=== PATIENT | female | born 1950 | race Caucasian/White ===

== ENCOUNTER 2021-06-02 18:22 | Emergency (ER) | payer MEDICARE, SELFPAY ==
[2021-06-02] VITALS (19 sets, daily range): BP systolic 129–173; BP diastolic 72–94; PULSE 53–66; RESP 13–20; TEMP 36.8; O2SAT 99–100
--- NOTE | ~2021-06-02 | CT_ITS ---
EXAMINATION: CTA brain carotid EXAM DATE: 06/02/2021 20:21 INDICATION: Dizziness. TECHNIQUE: Noncontrast head CT. Spiral CTA of the carotid arteries was performed with intravenous i njection 100 cc of Omnipaque 350. Axial, coronal, sagittal reformatted images reviewed. Additional r eformatted images created on dedicated 3-D workstation. NASCET comparable standard used to assess th e degree of arterial stenosis. Spiral CT angiogram cerebral arteries performed with the same intrave nous injection of contrast. Source images of the brain CTA transferred to dedicated workstation for 3 -D rotational image creation. Coronal, sagittal maximum intensity pixel images also reviewed. The d ose-length product (DLP) for this examination was 1609.10 mGy-cm. The exposure was tailored accordi ng to patient size, and iterative reconstruction (ASIR) was used as additional dose reduction techniq ue. Comparison is made to prior examination from 12/07/2014. FINDINGS: There is no carotid bulb arteriosclerosis or stenosis. The vertebral arteries are codominan t. There is left-sided posterior communicating artery dominant posterior cerebral artery. There is no carotid or vertebral basilar arterial dissection or fibromuscular dysplasia. There are no cerebra l artery aneurysms. There is symmetric cerebral artery arborization. The sagittal, transverse and sig moid sinuses enhance normally, no venous sinus thrombosis. Internal cerebral veins also enhance jazmyne lly. 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 There is no acute intraparenchymal hemorrhage. No evidence of intraparenchymal brain mass lesion. N o evidence of acute infarction. There is no mass effect or midline shift. There is no obstructive hyd rocephalus suspected. There are no extra-axial collections. Incidental Findings: Mildly prominent extraocular muscle bellies, can't exclude thyroid ophthalmopleg ia. Mild thyromegaly. Moderate cervical spondylosis. IMPRESSION: 1. No acute carotid or intracranial findings. 2. Bilateral carotid bulb 0% stenosis. 3. Mild thyromegaly. 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 Reviewed, dictated and finalized at location A.
--- NOTE | 2021-06-02 18:34 | ECG_ITS ---
Measurements Intervals [place] Rate: 56 P: 30 TN: 185 QRS: 4 QRSD: 106 T: 188 QT: 456 QTc: 441 Interpretive Statements SINUS BRADYCARDIA LEFT VENTRICULAR HYPERTROPHY WITH ST-T CHANGE ST-T WAVE ABNORMALITY IN ANTEROLAT/HIGH LAT LEADS- CONSIDER ISCHEMIA BASELINE ARTIFACT- I, II, III, AVR, AVL, AVF, V4 ABNORMAL ECG Electronically Signed On 06-03-2021 7:35:06 CDT by Franklin Nance D.O.
--- NOTE | 2021-06-02 18:40 | ED.GENADULT ---
HPI - General Adult General Chief complaint: Dizziness Stated complaint: Dizziness Time Seen by Provider: 06/02/21 18:29 Source: patient History of Present Illness HPI narrative: Patient is a 70 y/o female complaining of moderate dizziness starting about 5:30 PM today. She describes her dizziness as a room spinning sensation. Movement seems to aggravate her dizziness. She has no nausea or vomiting, no focal weakness or numbness. She states that she has trouble talking at times. She also has some left posterior neck pain. Related Data Allergies Allergy/AdvReac Type Severity Reaction Status Date / Time GAIL Inhibitors Allergy Severe Anaphylactic Verified 06/02/21 18:32 Shock Review of Systems Review of Systems: All systems reviewed & are unremarkable except as noted in HPI and below Constitutional: Constitutional: Denies chills, Denies fever(s), Denies headache(s) and Denies weakness Eyes: Eyes: Denies blurry vision ENT: Denies headache(s) and Denies neck pain Cardiovascular: Cardiovascular: Denies chest pain and Denies dyspnea Respiratory: Respiratory: Denies cough and Denies dyspnea Gastrointestinal: Gastrointestinal: Denies abdominal pain, Denies diarrhea, Denies nausea and Denies vomiting Genitourinary: Genitourinary: Denies hematuria and Denies dysuria Musculoskeletal: Musculoskeletal: Denies back pain and Reports neck pain Neurologic: Reports dizziness, Denies headache(s) and Denies weakness Exam Const: General: no acute distress and well developed Orientation/consciousness: oriented to person, oriented to place, oriented to time and patient oriented x3 HENMT: Head: normocephalic Ears: external ears normal General nose exam: Normal external nose present Eyes: General: appearance normal, both eyes and all related structures Conjunctivae: conjunctivae normal Neck: Neck: normal visual inspection and full ROM Chest: Chest palpation & inspection: normal inspection of the chest and no tenderness Resp: Effort & Inspection: normal respiratory effort Auscultation: clear to auscultation bilaterally Cardio: Rate: regular rate Rhythm: regular rhythm GI: GI Palp: No abdominal tenderness and Yes Soft to palpation Skin: General skin exam: normal color and turgor normal Neuro: General: oriented to person, oriented to place, oriented to time and patient oriented x3 Cranial nerves: Yes CN's II-XII intact bilaterally Cognition (Neuro): normal cognition Speech: normal speech Motor exam (neuro): 5/5 motor strength present throughout Sensory Exam: normal sensation Coordination: [id number] test normal and [id number] test normal Extrem: General: normal to inspection, full ROM and no pedal edema Psych: Appearance: grossly normal Mental Status: mental status grossly normal Affect: normal affect Course Reevaluation(s) Reevaluation #1: Rechecked. Patient feels better. She states that she is able to ambulated without difficulty. Date: 06/02/21 Time: 22:58 Vital Signs Vital signs: Vital Signs Temperature 36.8 C 06/02/21 18:34 Pulse Rate 56 L 06/02/21 18:34 Respiratory Rate 16 06/02/21 18:34 Blood Pressure 161/92 H 06/02/21 18:34 Pulse Oximetry 100 06/02/21 18:34 Temperature 36.8 C 06/02/21 18:34 Pulse Rate 56 L 06/02/21 22:15 Respiratory Rate 18 06/02/21 22:15 Blood Pressure 163/76 H 06/02/21 22:01 Pulse Oximetry 100 06/02/21 22:15 Medical Decision Making Vital Signs Vital Signs: Vital Signs Temperature 36.8 C 06/02/21 18:34 Pulse Rate 56 L 06/02/21 18:34 Respiratory Rate 16 06/02/21 18:34 Blood Pressure 161/92 H 06/02/21 18:34 Pulse Oximetry 100 06/02/21 18:34 Temperature 36.8 C 06/02/21 18:34 Pulse Rate 56 L 06/02/21 22:15 Respiratory Rate 18 06/02/21 22:15 Blood Pressure 163/76 H 06/02/21 22:01 Pulse Oximetry 100 06/02/21 22:15 Lab Data Result diagrams: 06/02/21 19:13 06/02/21 19:13 Labs: L
[2021-06-02] MEDS: MECLIZINE HCL 25 MG TABLET PO (18:50)
[2021-06-02 19:22] LABS: Basophils Percent Auto 0.4 % (0.2-1.2); Eosinophils Percent Auto 0.7 % (0-4.4); Hematocrit 34.8 % (37.0-47.0); Hemoglobin 11.2 g/dL (12.0-15.0); Immature Granulocyte Absolute 0.02 K/mm3 (0.00-0.031); Immature Granulocyte Percent A 0.4 % (0-0.5); Lymphocytes Absolute Auto 2.08 K/mm3 (0.9-3.2); Lymphocytes Percent Auto 38.8 % (18.3-44.2); Mean Corpuscular HGB Conc 32.2 g/dl (32-36); Mean Corpuscular Hemoglobin 28.6 pg (26-34); Monocytes Absolute Auto 0.5 K/mm3 (0.1-0.6); Monocytes Percent Auto 8.4 % (2.6-8.5); Neutrophils Absolute Auto 2.8 K/mm3 (1.3-6.7); Neutrophils Percent Auto 51.3 % (45.5-73.1); Platelet Count Result 272 k/mm3 (150-375); Red Blood Count 3.91 M/mm3 (4.2-5.4); Red Cell Distribution Width 14.6 % (11.5-14.5); White Blood Count 5.4 K/mm3 (4.5-10.0)
[2021-06-02 19:33] LABS: Alanine Aminotransferase 24 U/L (4-35); Albumin Level 4.3 g/dL (3.5-5.1); Alkaline Phosphatase 85 U/L (38-126); Anion Gap 9 mmol/L (8-16); Aspartate Amino Transferase 27 U/L (14-36); Bilirubin,Total 0.3 mg/dL (0.2-1.3); Blood Urea Nitrogen 14 mg/dL (7-17); Calcium 9.9 mg/dL (8.4-10.2); Carbon Dioxide 30 mmol/L (22-30); Chloride 102 mmol/L (98-107); Estimated CRCL calculation 58 ml/min; Estimated Glomerular Filt Rate > 60; Glucose 97 mg/dL (65-105); Potassium 3.4 mmol/L (3.4-5.0); Sodium 141 mmol/L (137-145)
[2021-06-02 19:40] LABS: Glucose Point of Care 104 mg/dl (65-105)
== END 2021-06-02 23:46 | disposition home or self-care (01) ==
PROVIDERS: Emergency Provider Emergency Medicine
DX: R42 Dizziness and giddiness (principal)
CPT/HCPCS: 36415; 70496; 70498; 80053; 82948; 85025; 93005; 99284; A9270; Q9967